=== PATIENT | female | born 1965 | race Two or more races ===

== ENCOUNTER 2023-06-30 07:56 | Outpatient (CLI) | payer OTHER | END 2023-06-30 07:58 | disposition home or self-care (01) | LOC: NUCLEAR 07:56 | DX: C34.01 Malignant neoplasm of right main bronchus (principal); C34.02 Malignant neoplasm of left main bronchus; R91.1 Solitary pulmonary nodule ==

== ENCOUNTER 2024-02-18 05:13 | Emergency (ER) | payer OTHER ==
[~2024-02-18] VITALS: Ht 157.5 cm; Wt 69.9 kg
[2024-02-18] MEDS ORDERED: PEPCID AC20 MG PO (05:20)
[2024-02-18] MEDS ORDERED: SINGULAIR10 MG PO (05:20)
[2024-02-18] MEDS ORDERED: CRESTOR40 MG PO (05:20)
[2024-02-18] MEDS ORDERED: CARDIZEM120 MG PO (05:20)
[2024-02-18] MEDS ORDERED: ACETAMINOPHEN 500 MG GEL..CAP PO STA (06:10)
[2024-02-18] MEDS ORDERED: DILTIAZEM HCL 120 MG TABLET PO STA (06:10)
[2024-02-18] MEDS ORDERED: ACETAMINOPHEN 500 MG GEL..CAP PO ONE (06:14)
[2024-02-18 07:03] LABS: HEMATOCRIT 37.4 % (36.0-45.00); HEMOGLOBIN 12.6 g/dL (12.0-15.00); MEAN CELL VOLUME 85.5 fL (80.00-100.00); MEAN CORPUSCULAR HEMOGLOBIN 28.8 pg (27.00-32.0); MEAN CORPUSCULAR HGB CONC 33.7 g/dl (32.0-36.0); PLATELET COUNT 297 K/uL (150-450); RED BLOOD COUNT 4.37 M/uL (4.00-6.00); RED CELL DISTRIBUTION WIDTH 13.5 % (11.5-14.5)
[2024-02-18 07:14] LABS: URINE APPEARANCE Clear; URINE BILIRRUBIN Negative (NEGATIVE); URINE BLOOD Trace; URINE COLOR Yellow; URINE GLUCOSE Negative (NEGATIVE); URINE KETONE Negative (NEGATIVE); URINE LEUKOCYTE Negative; URINE NITRATE Negative; URINE PROTEIN Negative (NEGATIVE); URINE UROBILINOGEN 0.2 E.U./dl
[2024-02-18 07:18] LABS: URINE BACTERIA 52.8 uL (0.0-1933); URINE RBC 47.9 uL (0.0-20.8)
[2024-02-18 07:28] LABS: URINE EPITHELIAL CELLS 0.9 uL (0.0-38.8); URINE WBC 0.7 uL (0.0-23.2)
[2024-02-18 07:47] VITALS: O2SAT 100
[2024-02-18 08:08] LABS: ALBUMIN 3.7 gm/dL (3.4-5.0); BILIRUBIN TOTAL 0.41 mg/dL (0.3-1.2); CALCIUM 9.1 mg/dL (8.5-10.1); CREATININE SERUM 0.57 mg/dL (0.55-1.02); GFR 108.56; GLOBULINA 3.4 G/DL (2.4-3.5); POTASSIUM 3.51 mEq/L (3.5-5.1); TOTAL PROTEIN 7.1 gm/dL (6.4-8.2)
[2024-02-18 10:30] VITALS: BP 135/79
== END 2024-02-18 10:33 | disposition home or self-care (01) ==
LOC: ER 05:15
PROVIDERS: General Practice
DX: R00.2 Palpitations (principal); C80.1 Malignant (primary) neoplasm, unspecified; Z91.018 Allergy to other foods; I10 Essential (primary) hypertension